=== PATIENT | male | born 1980 | race Caucasian/White ===

== ENCOUNTER → 2021-02-02 09:52 | Outpatient (CLI) | payer BC, SELFPAY ==
--- NOTE | 2021-02-02 09:55 | DI.RAD.S_ITS ---
PROCEDURE: XR HAND LT MIN 3V INDICATIONS: bilateral hand pain TECHNIQUE: 3 views of the hand(s) acquired. COMPARISON: None. FINDINGS: Bones: No fractures or dislocations. Carpal bones are normally aligned. No suspicious bony lesions. There is a corticated ossicle adjacent to the ulnar styloid, which may be ulnar styloid fracture versus accessory ossicle. Mild osteoarthritic changes are noted at the 1st carpometacarpal joint and 1st metacarpophalangeal joint. Soft tissues: No suspicious soft tissue calcifications. IMPRESSION: Mild osteoarthritic changes. Dictated by: Kerri Rivas M.D. on 02/02/2021 at 17:59 Approved by: Kerri Rivas M.D. on 02/03/2021 at 15:50
--- NOTE | 2021-02-02 09:55 | DI.RAD.S_ITS ---
PROCEDURE: XR CERVICAL SPINE 2V OR 3V INDICATIONS: chronic neck pain TECHNIQUE: 3 view(s) of the cervical spine were acquired. COMPARISON: None. FINDINGS: Bones: No fractures or dislocations to the T1 level. The lateral masses of C1 appear intact on the odontoid view. No suspicious bony lesions. Loss of lordosis which could be related to muscle spasm, rigidity or simply positional. Mild disc height loss at the C4-C5 and C5-C6 levels. Soft tissues: No prevertebral soft tissue swelling. IMPRESSION: Loss of lordosis and mild disc degeneration at the C4-C5 and C5-C6 levels. Dictated by: Dev Shaikh RRA Interpreted: Josi Dotson MD on 02/02/2021 at 10:44 Transcribed by: JACKIE on 02/02/2021 at 10:45 Approved by: Josi Dotson MD, PhD on 02/02/2021 at 14:24
--- NOTE | 2021-02-02 09:55 | DI.RAD.S_ITS ---
PROCEDURE: XR HAND RT MIN 3V INDICATIONS: bilateral hand pain TECHNIQUE: 3 views of the right hand(s) acquired. COMPARISON: None. FINDINGS: Bones: No fractures or dislocations. Carpal bones are normally aligned. No suspicious bony lesions. No osseous erosive changes. No periarticular osteopenia. No periosteal reaction. Soft tissues: No suspicious soft tissue calcifications. IMPRESSION: No osseous lesion. If symptoms and/or clinical suspicion for pathology persists, further assessment with repeat radiographs (7-10 days) or advanced imaging (e.g. CT, MRI or bone scan) should be considered. Dictated by: Josi Dotson MD, PhD on 02/02/2021 at 13:13 Approved by: Josi Dotson MD, PhD on 02/02/2021 at 13:14
== END ==
PROVIDERS: PCP Family Medicine; Referring Provider Family Medicine; Visit Provider Family Medicine
DX: M50.321 Other cervical disc degeneration at C4-C5 level (principal); M79.641 Pain in right hand; M79.642 Pain in left hand; M47.816 Spondylosis without myelopathy or radiculopathy, lumbar region; K58.9 Irritable bowel syndrome, unspecified; G89.29 Other chronic pain
CPT/HCPCS: 72040; 73130

== ENCOUNTER → 2021-02-15 07:18 | Outpatient (CLI) | payer BC, SELFPAY ==
[2021-02-15 09:29] LABS: Add Manual Diff / Slide Review NO; Basophils Absolute Auto 100 /uL (0-100); Basophils Percent Auto 0.7 % (0-2); Eosinophils Absolute Auto 200 /uL (0-450); Eosinophils Percent Auto 3.1 % (2-4); Hematocrit 47.3 % (41-53); Hemoglobin 16.4 g/dL (13.5-17.5); Lymphocytes Absolute Auto 2600 /uL (1100-4500); Mean Corpuscular HGB Conc 34.6 % (30-36); Mean Corpuscular Hemoglobin 28.8 PG (26-34); Mean Corpuscular Volume 83.4 fL (80-100); Monocytes Absolute Auto 500 /uL (0-900); Monocytes Percent Auto 7.1 % (3-14); Neutrophils Absolute Auto 3500 /uL (1500-7000); Neutrophils Percent Auto 51.1 % (50-75); Platelet Count 264 X10^3/uL (150-400); Red Blood Cell Count 5.68 X10^6/uL (4.5-5.9); Red Cell Distribution Width 13.2 % (11.6-14.8); White Blood Cell Count 6.9 X10^3/uL (4.5-11.0)
[2021-02-15 09:32] LABS: Alanine Aminotransferase 68 IU/L (<50); Albumin 4.8 g/dL (3.5-5.0); Albumin Globulin Ratio 1.3 (1.0-2.8); Alkaline Phosphatase 73 U/L (38-126); Aspartate Aminotransferase 39 IU/L (17-59); BUN Creatinine Ratio 17.6 (6-22); Bilirubin Total 0.7 mg/dL (0.2-1.3); Blood Urea Nitrogen 18 mg/dL (9-20); Calcium 10.3 mg/dL (8.4-10.2); Carbon Dioxide 32 mmol/L (22-32); Chloride 101 mmol/L (98-107); Cholesterol 275 mg/dL (140-199); Estimated Glomerular Filt Rate > 60.0 mL/min (>60); Globulin 3.8 g/dL (1.7-4.1); Glucose 107 mg/dL (70-100); HDL Cholesterol 54 mg/dL (40-60); HEMOLYSIS < 15 (0-50); LDL Cholesterol Calculated 154 mg/dL (<100); Sodium 139 mmol/L (137-145); Total Protein 8.6 g/dL (6.3-8.2); Triglycerides 336 mg/dL (35-150)
[2021-02-17 14:15] LABS: Deamidated Gliadin Ab IgA 4 units (0-19); Deamidated Gliadin Ab IgG 3 units (0-19); Immunoglobulin A,Qn 194 mg/dL (90-386); t-Transglutaminase IgA <2 U/mL (0-3)
== END ==
PROVIDERS: PCP Family Medicine; Referring Provider Family Medicine; Visit Provider Family Medicine
DX: K21.9 Gastro-esophageal reflux disease without esophagitis (principal); K58.9 Irritable bowel syndrome, unspecified; M47.816 Spondylosis without myelopathy or radiculopathy, lumbar region
CPT/HCPCS: 36415; 80053; 80061; 82784; 83516; 85025

== ENCOUNTER → 2021-03-30 06:34 | Outpatient (CLI) | payer BC, SELFPAY ==
--- NOTE | 2021-03-30 06:36 | DI.MRI.S_ITS ---
PROCEDURE: MR CERVICAL SPINE WO CON INDICATIONS: worsening neck pain and hand numbness and weakness TECHNIQUE: Noncontrast sagittal T1 spin echo and T2 fast spin echo, sagittal STIR, foraminal oblique sagittal T2 fast spin echo, and axial gradient echo or T2 fast spin echo through the cervical spine. COMPARISON: None. FINDINGS: Image quality: Excellent. Alignment and Curvature: There is normal bony alignment. There is mild reversal normal cervical spine curvature. Bone Marrow: Small hemangioma noted in the C6 vertebral body. Spinal Cord: Visualized spinal cord has normal size and signal. No cerebellar tonsillar herniation. Paraspinous Soft Tissues: No paravertebral masses. Prevertebral soft tissues are normal in thickness. C2-C3: Normal appearance. C3-C4: Slight loss of disc signal. No central stenosis. No neural foraminal narrowing. No neural compression. C4-C5: Slight loss of disc signal. Mild, diffuse disc bulge. Moderate narrowing of the central canal. No neural foraminal narrowing. C5-C6: Loss of disc signal. Mild, diffuse disc bulge. Right central disc extrusion. Extruded disc material abuts and compresses the right margin of the cervical spinal cord and the exiting right C6 nerve root. Severe narrowing of the central canal. Moderate right neural foraminal narrowing. C6-C7: Loss of disc signal. No central stenosis. No neural foraminal narrowing. No neural compression. C7-T1: Normal appearance. IMPRESSION: 1. Mild multilevel degenerative disc disease. 2. C5-C6 right central disc extrusion. Extruded disc material compresses the right margin of the cervical spinal cord and the right C6 nerve root. 3. Severe C5-C6 central canal narrowing secondary to disc disease. Moderate C4-C5 central canal narrowing secondary to disc disease. 4. Moderate right C5-C6 neural foraminal narrowing. Dictated by: Josi Dotson MD, PhD on 03/30/2021 at 10:21 Approved by: Josi Dotson MD, PhD on 03/30/2021 at 10:25
== END ==
PROVIDERS: PCP Family Medicine; Referring Provider Family Medicine; Visit Provider Family Medicine
DX: M50.321 Other cervical disc degeneration at C4-C5 level (principal); M50.222 Other cervical disc displacement at C5-C6 level; M48.02 Spinal stenosis, cervical region; M79.642 Pain in left hand; M79.641 Pain in right hand; R29.898 Other symptoms and signs involving the musculoskeletal system; G89.29 Other chronic pain
CPT/HCPCS: 72141

== ENCOUNTER → 2021-10-28 07:02 | Outpatient (CLI) | payer BC, SELFPAY ==
--- NOTE | 2021-10-28 | DI.MRI.S_ITS ---
PROCEDURE: MR ANKLE LT WO CON INDICATIONS: Short Achilles tendon (acquired), left ankle/pain TECHNIQUE: Noncontrast sagittal T1 spin echo and T2 fast spin echo with fat saturation, axial proton density fast spin echo and T2 fast spin echo with fat saturation, coronal T1 spin echo and T2 fast spin echo with fat saturation through the ankle/hindfoot. COMPARISON: None. FINDINGS: Image quality: Excellent. Bones and joints: No bone marrow contusions or fractures. No hindfoot coalitions. No osteochondral injuries of the talar dome. No pathologic joint effusions. Medial structures: The posterior tibialis, flexor digitorum longus, and flexor hallucis longus tendons are intact. The posterior tibial neurovascular bundle appears normal within the tarsal tunnel, without extrinsic mass effect. The deep layer (anterior and posterior tibiotalar ligaments) and superficial layer (tibionavicular, tibiospring, and tibiocalcaneal ligaments) of the deltoid ligament appear normal. The spring ligament components (superomedial calcaneonavicular, medioplantar oblique calcaneonavicular, and inferoplantar longitudinal ligaments) are intact. Lateral structures: The anterior talofibular, calcaneofibular, and posterior talofibular ligaments appear intact. More superiorly, the anterior and posterior tibiofibular ligaments appear intact, as is the intermalleolar ligament. The tibiofibular syndesmosis is normal in width at 2 mm or less. The peroneus longus and brevis tendons demonstrate normal location and morphology. Adjacent bony peroneal tubercle and retrotrochlear prominence are normal in size. The sinus tarsi demonstrates normal fatty signal, without edema, fibrosis, or cyst formation. Visualized sinus tarsi components (cervical ligament, interosseous talocalcaneal ligament, roots of the inferior extensor retinaculum) appear normal. The calcaneonavicular and calcaneocuboid components of the bifurcate ligament appear intact. The dorsal calcaneocuboid ligament appears intact. Anterior structures: The tibialis anterior, extensor hallucis longus, and extensor digitorum longus tendons appear intact. The dorsal talonavicular ligament appears intact. Posterior and plantar structures: Mildly thickening of distal Achilles tendon at its posterior calcaneal insertion is seen with mild overlying soft tissue edema. No Achilles tendon rupture. Medial and lateral bands of the plantar fascia are of normal thickness. No abductor digiti quinti muscle atrophy to suggest Gordon neuropathy. IMPRESSION: 1. Thickened distal Achilles tendon at its posterior calcaneal insertion is seen suggestive of Achilles tendinosis. No Achilles tendon rupture. Plantar fascia is intact. 2. Extensor, flexor, and peroneus tendons are intact. 3. Medial and lateral ankle ligaments are intact. 4. No marrow edema. No osteochondral injury of talar dome. No fracture or dislocation. Dictated by: Niko Culver M.D. on 10/28/2021 at 9:33 Approved by: Niko Culver M.D. on 10/28/2021 at 9:41
== END ==
PROVIDERS: PCP Family Medicine; Referring Provider Podiatrist; Visit Provider Podiatrist
DX: M67.02 Short Achilles tendon (acquired), left ankle (principal); M79.672 Pain in left foot
CPT/HCPCS: 73721

== ENCOUNTER → 2022-11-10 10:44 | Outpatient (CLI) | payer BC, SELFPAY ==
[2022-11-10 11:47] LABS: Add Manual Diff / Slide Review NO; Basophils Absolute Auto 100 /uL (0-100); Basophils Percent Auto 1.2 % (0-2); Eosinophils Absolute Auto 200 /uL (0-450); Eosinophils Percent Auto 4.4 % (2-4); Hematocrit 43.2 % (41-53); Hemoglobin 14.8 g/dL (13.5-17.5); Lymphocytes Absolute Auto 2300 /uL (1100-4500); Mean Corpuscular HGB Conc 34.3 % (30-36); Mean Corpuscular Hemoglobin 28.7 PG (26-34); Mean Corpuscular Volume 83.7 fL (80-100); Monocytes Absolute Auto 400 /uL (0-900); Monocytes Percent Auto 7.1 % (3-14); Neutrophils Absolute Auto 2400 /uL (1500-7000); Neutrophils Percent Auto 44.3 % (50-75); Platelet Count 243 X10^3/uL (150-400); Red Blood Cell Count 5.16 X10^6/uL (4.5-5.9); Red Cell Distribution Width 13.6 % (11.6-14.8); White Blood Cell Count 5.3 X10^3/uL (4.5-11.0)
[2022-11-10 12:31] LABS: Alanine Aminotransferase 68 IU/L (<50); Albumin 4.6 g/dL (3.5-5.0); Albumin Globulin Ratio 1.4 (1.0-2.8); Alkaline Phosphatase 70 U/L (38-126); Aspartate Aminotransferase 43 IU/L (17-59); BUN Creatinine Ratio 12.4 (6-22); Bilirubin Total 0.4 mg/dL (0.2-1.3); Blood Urea Nitrogen 11 mg/dL (9-20); Calcium 9.6 mg/dL (8.4-10.2); Carbon Dioxide 27 mmol/L (22-32); Chloride 101 mmol/L (98-107); Cholesterol 248 mg/dL (140-199); Estimated Glomerular Filt Rate > 60 mL/min (>60); Globulin 3.4 g/dL (1.7-4.1); Glucose 100 mg/dL (70-100); HDL Cholesterol 44 mg/dL (40-60); HEMOLYSIS < 15 (0-50); LDL Cholesterol Calculated 145 mg/dL (<100); Potassium 4.4 mmol/L (3.4-5.1); Sodium 138 mmol/L (137-145); Triglycerides 295 mg/dL (35-150)
[2022-11-10 13:01] LABS: TSH w/ Reflex to FT4 2.75 uIU/mL (0.47-4.68)
== END ==
PROVIDERS: PCP Family Medicine; Referring Provider Family Medicine; Visit Provider Family Medicine
DX: E78.5 Hyperlipidemia, unspecified (principal); E83.52 Hypercalcemia; K58.9 Irritable bowel syndrome, unspecified; M67.40 Ganglion, unspecified site
CPT/HCPCS: 36415; 80053; 80061; 84443; 85025

== ENCOUNTER → 2023-06-02 06:41 | Outpatient (CLI) | payer BC, SELFPAY ==
[2023-06-02 07:44] LABS: Add Manual Diff / Slide Review NO; Basophils Absolute Auto 0 /uL (0-100); Basophils Percent Auto 0.6 % (0-2); Eosinophils Absolute Auto 400 /uL (0-450); Eosinophils Percent Auto 5.5 % (2-4); Hematocrit 46.6 % (41-53); Lymphocytes Absolute Auto 2500 /uL (1100-4500); Lymphocytes Percent Auto 34.4 % (25-40); Mean Corpuscular HGB Conc 34.4 % (30-36); Mean Corpuscular Hemoglobin 28.9 PG (26-34); Mean Corpuscular Volume 83.9 fL (80-100); Monocytes Absolute Auto 500 /uL (0-900); Monocytes Percent Auto 7.1 % (3-14); Neutrophils Absolute Auto 3900 /uL (1500-7000); Neutrophils Percent Auto 52.4 % (50-75); Platelet Count 226 X10^3/uL (150-400); Red Blood Cell Count 5.55 X10^6/uL (4.5-5.9); White Blood Cell Count 7.4 X10^3/uL (4.5-11.0)
[2023-06-02 08:06] LABS: Alanine Aminotransferase 38 IU/L (<50); Albumin Globulin Ratio 1.5 (1.0-2.8); Alkaline Phosphatase 71 U/L (38-126); Aspartate Aminotransferase 28 IU/L (17-59); Bilirubin Total 0.6 mg/dL (0.2-1.3); Blood Urea Nitrogen 17 mg/dL (9-20); Calcium 10.2 mg/dL (8.4-10.2); Carbon Dioxide 31 mmol/L (22-32); Chloride 104 mmol/L (98-107); Cholesterol 158 mg/dL (140-199); Estimated Glomerular Filt Rate > 60 mL/min (>60); Globulin 3.3 g/dL (1.7-4.1); Glucose 107 mg/dL (70-100); HDL Cholesterol 59 mg/dL (40-60); HEMOLYSIS < 15 (0-50); LDL Cholesterol Calculated 58 mg/dL (<100); Potassium 4.5 mmol/L (3.4-5.1); Sodium 140 mmol/L (137-145); Total Protein 8.3 g/dL (6.3-8.2); Triglycerides 206 mg/dL (35-150)
[2023-06-04 09:10] LABS: Apolipoprotein B 104 mg/dL (<90)
[2023-06-07 05:11] LABS: Lipoprotein (a) 77.7 nmol/L (<75.0)
== END ==
LOC: LAB 06:41
PROVIDERS: PCP Family Medicine; Referring Provider Family Medicine; Visit Provider Family Medicine
DX: E78.5 Hyperlipidemia, unspecified (principal); M54.2 Cervicalgia; G89.29 Other chronic pain; F43.20 Adjustment disorder, unspecified; R74.8 Abnormal levels of other serum enzymes
CPT/HCPCS: 36415; 80053; 80061; 82172; 83695; 85025

== ENCOUNTER → 2024-01-30 14:41 | Outpatient (CLI) | payer BC, SELFPAY ==
--- NOTE | 2024-02-02 12:26 | DIET.OUTPTC ---
Dietary Outpatient Consultation Note Consultation Date: 01/30/2024 Assessment: 43 y M referred to dietitian for K58.9 - Irritable bowel syndrome without diarrhea. Pt and , Zoie are present at visit. Pt reports IBS ongoing for 3-4 years with recent worsening of symptoms. Symptoms include bloating, abdominal cramping and diarrhea. They occur at least 1x/wk and last anywhere between 2-5 days. During this time experiences watery diarrhea about 2x/day. Usually bloating occurs first for around 5 hours and then experiences abd pain. About 5 yrs ago, pt tried low FODMAPS elimination diet using [employer] aaron. Low fodmaps consistent of very limited variety of foods d/t pt's busy life at time and therefore was difficult to carry out. When he tried the reintroduction phase he noted gluten containing products causes symptom flare up. Pt has had lab work done indicating that he does not have celiac disease. No nausea/vomiting. Experiences periods of acid reflux for which he starts medication and it resolves. Can't tolerate fatty meats. PMH of hyperlipidemia. Taking atorvastatin. TG 206, chol 158, LDL 58, HDL 59 on 06/02/23. Diet recall: B-oatmeal or cheerios and skim milk L-lunch meat sandwiches, GF bars or snacks (made good, KIND, [employer]) D-Chicken, rice, dozier peppers (<1 whole one) Eats meals in 5-10 minutes. Puts hot sauce on dinners. Drinks 3-4 12 oz cups of regular brewed coffee daily (360-450 mg caffeine estimated daily) At most has 1-2 alcoholic beverages per week. Estimates around 32-48 oz of water per day Pt reports he is experiencing stress. Ht: 6 ft 1in Wt: 252 lb and 4 oz BMI: 33.3 UBW: 264-244 lb (2022-present) Nutrition Diagnosis: Food and nutrition related knowledge deficit r/t no previous nutrition educ on IBS aeb pt report Interventions: -Spent time discussing symptoms and previous experiences with food -Discussed first line modifiers vs low FODMAPS -Discussed IBS and what FODMAPs/low FODMAPs diet means -Label read ingredients and identified commonly eaten foods that are high FODMAPS (i.e. KIND bars with chicory root/honey) -Low FODMAPs snacks -Low FODMAPS fiber sources -Pt confirms he has the e-book guide from [employer] that lists the high and low FODMAPs foods that are verified by the [employer] aaron Plan to come back in February when holiday season is over to start a low FODMAPs for 2-6 weeks. At f/u will further cover low FODMAP foods and how to increase variety. For now will start with first line modifiers listed below. Goals: 1. Extend eating meals to 30+ minutes with adequate chewing of food to begin digestion process. 2. Reduce or eliminate hot sauce and opt for other seasoning to help manage acid reflux symptoms. 3. Additional 3-6 g soluble fiber (provided handout on low fodmaps fiber choices) EER: 35-38 g fiber/day Monitoring/Evaluations: f/u in 1 month Electronically Signed by: Uyen Granda 02/02/24 12:26 Clinical Dietitian [address] [address]
== END ==
PROVIDERS: PCP Family Medicine; Referring Provider Family Medicine
DX: K58.0 Irritable bowel syndrome with diarrhea (principal); Z71.3 Dietary counseling and surveillance; Z68.33 Body mass index [BMI] 33.0-33.9, adult; E78.5 Hyperlipidemia, unspecified; K21.9 Gastro-esophageal reflux disease without esophagitis
CPT/HCPCS: 97802

== ENCOUNTER → 2024-02-29 16:04 | Outpatient (CLI) | payer BC, SELFPAY ==
--- NOTE | 2024-02-29 17:43 | DIET.OUTPTC ---
Dietary Outpatient Consultation Note Consultation Date: 02/29/2024 Assessment: 43 y M referred to dietitian for K58.9 - Irritable bowel syndrome without diarrhea. Pt presents for f/u reporting being asymptomatic for 3 weeks now. Reports normal soft-formed stools 1x/day. Following appt in Jan, pt changed to eliminating most processed foods, slowing pace of eating and not eating in front of screen, eliminating hot sauce, reducing coffee to 3 12 oz cups and incorporating increased amounts of fiber into diet. Diet recall: (elimination diet, all low FODMAPs foods) B-cherrios and skim milk and banana L-poultry, 1 c of potatoes or rice, vegetables D- same as above, 1x/wk has 8 oz fish Pace of eating has help with hunger/fullness cues. Nutrition Diagnosis: (initial dx-Improved) Food and nutrition related knowledge deficit r/t no previous nutrition educ on IBS aeb pt report Interventions: -Discussed some additional variety of carbohydrates, fruits, vegs to have as options -Pt has done much research on IBS and FODMAPs and has strong understanding of these topics. 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 Encouraged continued variation of low fodmaps food for variety and adequate intake. Due to patient having many reliable/research based resources and strong understanding of topic/confidence in carrying out reintroduction phase, will f/u in 6 months over a closer f/u. Encouraged to reach out for additional questions/concerns/schedule sooner f/u as needed. EER: 35-38 g fiber/day Monitoring/Evaluations: f/u in 6 months Electronically Signed by: Uyen Granda 02/29/24 17:43 Clinical Dietitian [address] [address]
== END ==
PROVIDERS: PCP Family Medicine; Referring Provider Family Medicine
DX: K58.9 Irritable bowel syndrome, unspecified (principal); Z71.3 Dietary counseling and surveillance
CPT/HCPCS: 97803

== ENCOUNTER → 2024-03-20 06:25 | Outpatient (CLI) | payer BC, SELFPAY ==
[2024-03-20 07:46] LABS: Add Manual Diff / Slide Review NO; Basophils Absolute Auto 0 /uL (0-100); Basophils Percent Auto 0.4 % (0-2); Eosinophils Absolute Auto 300 /uL (0-450); Eosinophils Percent Auto 3.8 % (2-4); Hematocrit 45.5 % (41-53); Hemoglobin 15.7 g/dL (13.5-17.5); Lymphocytes Absolute Auto 2300 /uL (1100-4500); Lymphocytes Percent Auto 31.5 % (25-40); Mean Corpuscular HGB Conc 34.6 % (30-36); Mean Corpuscular Volume 83.8 fL (80-100); Monocytes Absolute Auto 500 /uL (0-900); Monocytes Percent Auto 7.1 % (3-14); Neutrophils Absolute Auto 4200 /uL (1500-7000); Neutrophils Percent Auto 57.2 % (50-75); Platelet Count 240 X10^3/uL (150-400); Red Blood Cell Count 5.42 X10^6/uL (4.5-5.9); Red Cell Distribution Width 13.4 % (11.6-14.8); White Blood Cell Count 7.3 X10^3/uL (4.5-11.0)
[2024-03-20 08:05] LABS: Alanine Aminotransferase 63 IU/L (<50); Albumin 4.8 g/dL (3.5-5.0); Albumin Globulin Ratio 1.5 (1.0-2.8); Alkaline Phosphatase 69 U/L (38-126); Aspartate Aminotransferase 35 IU/L (17-59); Bilirubin Total 0.7 mg/dL (0.2-1.3); Blood Urea Nitrogen 17 mg/dL (9-20); Calcium 9.8 mg/dL (8.4-10.2); Carbon Dioxide 28 mmol/L (22-32); Chloride 101 mmol/L (98-107); Cholesterol 161 mg/dL (140-199); Estimated Glomerular Filt Rate > 60 mL/min (>60); Globulin 3.2 g/dL (1.7-4.1); Glucose 107 mg/dL (70-100); HDL Cholesterol 55 mg/dL (40-60); HEMOLYSIS < 15 (0-50); LDL Cholesterol Calculated 55 mg/dL (<100); Potassium 4.4 mmol/L (3.4-5.1); Sodium 139 mmol/L (137-145); Triglycerides 254 mg/dL (35-150)
[2024-03-20 08:34] LABS: TSH w/ Reflex to FT4 3.08 uIU/mL (0.47-4.68)
[2024-03-21 04:36] LABS: Apolipoprotein B 63 mg/dL (<90)
[2024-03-23 02:07] LABS: Lipoprotein (a) 9.9 nmol/L (<75.0)
== END ==
PROVIDERS: PCP Family Medicine; Referring Provider Family Medicine; Visit Provider Family Medicine
DX: E78.5 Hyperlipidemia, unspecified (principal); E83.52 Hypercalcemia; R74.8 Abnormal levels of other serum enzymes
CPT/HCPCS: 36415; 80053; 80061; 82172; 83695; 84443; 85025

== ENCOUNTER → 2024-05-29 10:26 | Outpatient (CLI) | payer BC, SELFPAY ==
--- NOTE | 2024-05-29 10:27 | DI.RAD.S_ITS ---
PROCEDURE: XR CERVICAL SPINE 4V OR 5V INDICATIONS: NECK PAIN TECHNIQUE: 5 views of the cervical spine acquired. COMPARISON: [facility], CR, XR CERVICAL SPINE 2V OR 3V, 02/02/2021, 9:49. FINDINGS: Bones: There is straightening of normal cervical lordosis. No acute fracture or dislocation. Mild degenerative endplate changes are seen at C5-6 and C6-7 levels. Oblique images demonstrate mild bilateral bony foraminal stenosis at C5-6 and C6-7 levels are noted. Soft tissues: No prevertebral soft tissue swelling. IMPRESSION: Very mild degenerative disc disease in lower cervical spine with mild bilateral bony foraminal stenosis seen on oblique views. No fracture or dislocation. Dictated by: Niko Culver M.D. on 05/29/2024 at 11:31 Approved by: Niko Culver M.D. on 05/29/2024 at 11:32
== END ==
PROVIDERS: PCP Family Medicine; Referring Provider Physical Medicine & Rehabilitation; Visit Provider Physical Medicine & Rehabilitation
DX: M50.322 Other cervical disc degeneration at C5-C6 level (principal); M48.02 Spinal stenosis, cervical region; G89.29 Other chronic pain
CPT/HCPCS: 72050

== ENCOUNTER 2024-06-13 08:48 | Outpatient (CLI) | payer BC, SELFPAY ==
[2024-06-13] VITALS (8 sets, daily range): BP systolic 132–151; BP diastolic 86–99; PULSE 72–79; RESP 11–17; TEMP 36.1; O2SAT 97–100
[2024-06-13] MEDS: MIDAZOLAM 2 MG/2 ML VIAL IV (10:11)
[2024-06-13] MEDS: iopamidoL 15 ML VIAL 3 ML INJ (10:16)
[2024-06-13] MEDS: DEXAMETHASONE 10 MG/ML VIAL 30 MG INJ (10:16)
[2024-06-13] MEDS: BUPIVACAINE 0.25% (PF) VIAL 2 ML INJ (10:17)
--- NOTE | 2024-06-13 10:30 | P.PCN_ITS ---
Date/Time/Diagnoses Date of procedure: 06/13/24 Time of procedure: 10:31 Pre-procedure diagnosis: 1. CERVICAL STENOSIS, 2. CERVICAL HNP WITH UPPER EXTREMITY RADICULAR FEATURES Post-procedure diagnosis: same Procedure Notes Procedure: 1. FLUORSCOPICALLY GUIDED CONTRAST CONTROLLED INTERLAMINAR EPIDURAL STEROID INJECTION - C6/7 TL KATERINA Indications: Tristin is referred by Dr. Headley for treatment of Cervical HNP with Upper Extremity Paresthesias. Physician: Ernesto Rod Total Fluoroscopy time (seconds): 31 Total sedation minutes: 15 Complications: none Procedure in detail & Post-procedure care: FINDINGS Cervical Stenosis due to disc deterioration and nerve root irritation and nerve root irritation DESCRIPTION OF PROCEDURE Fluoroscopically guided, contrast-controlled C6/7 translaminar epidural steroid injection with conscious sedation. Following review of allergy and review of potential side effects and complications, including, but not necessarily limited to, infection, allergic reaction, local tissue breakdown, temporary as well as permanent nerve injury, stroke, paralysis, and possible , the patient indicated that patient understood and agreed to proceed. An informed consent document was signed by the patient, witnessed by a nurse, and placed in the patient's chart. Additionally, other treatment options including modalities, medications, and physical therapy were reviewed with the patient. After review of previous anaesthesic history and IV conscious sedation the patient was deemed safe to proceed with today?s procedure with IV conscious s edation as ASA class II designation. Safety time-out was performed to confirm patient ID, procedure to be performed and site of procedure. IV sedation was accomplished with a combination of 2mg of Versed administered by the RN after DO order, titrated to patient comfort during the course of the procedure while the patient remained responsive to all verbal commands. In the prone position, following sterile prep and drape of the cervical region, the C6/7 translaminar space was identified fluoroscopically. The skin was anesthetized via a 25-gauge 1.5-inch needle with 1% lidocaine solution. At this point, a 25-gauge, 2.5-inch short bevel spinal needle was atraumatically introduced and advanced under fluoroscopic guidance into epidural space at the C6/7 translaminar space. Depth was confirmed on lateral view. Radiological data, including multiple fluoroscopic views of the cervical spine, reveal a spinal needle at the C6/7 translaminar space. Lateral views then show placement of the needle in the epidural space. Subsequent views show contrast material flowing superiorly and inferiorly in the epidural space. DSA fluoroscopy with live contrast injection, once again, confirmed no vascular or intrathecal uptake. At this point, using loss of resistance technique with saline and air, the epidural space was entered. Following negative aspiration, injection of approximately 1.5 cc of Isovue-200 with live fluoroscopy in the AP view confirmed epidural flow in the epidural space without vascular or intrathecal uptake observed. Subsequently, a test dose of 1 cc of 1% lidocaine solution was injected and patient was observed for two minutes without signs or symptoms of complications, including abdominal pain, shortness of breath, bilateral upper or lower extremity weakness, nausea and vomiting, prior to steroid injection. At this point, 3cc or 30mg of dexamethasone was then injected without incident. The patient tolerated the procedure well without signs or symptoms of complications prior to being transferred to the recovery area for further monitoring, The patient was then transferred to the recovery area where they were observed for an appropriate period of time after the injection. The patient reported a VAS score of 6 prior to the procedure and a post-procedure VAS of 0. POST OP INSTRUCTIONS The patient was provided a Pain Log to continue to record their response to the target-specific procedure prior to follow-up visit with the referring provider. Additionally, specific post-injection care instructions and a contact number to our office were provided if concerns arise regarding possible complications associated with the procedure are suspected.
== END 2024-06-13 10:44 | disposition home or self-care (01) ==
PROVIDERS: PCP Family Medicine; Referring Provider Physical Medicine & Rehabilitation; Visit Provider Physical Medicine & Rehabilitation
DX: M48.02 Spinal stenosis, cervical region (principal); M50.123 Cervical disc disorder at C6-C7 level with radiculopathy
CPT/HCPCS: 62321; 99152; J1100; J2250; J3490

== ENCOUNTER → 2024-08-29 16:15 | Outpatient (CLI) | payer BC, SELFPAY ==
[2024-08-29 17:40] LABS: Influenza A - CEPHEID Flu A NEGATIVE (NEGATIVE); Influenza B - CEPHEID Flu B NEGATIVE (NEGATIVE)
[2024-08-29 17:42] LABS: COVID-19 CEPHEID 4-PLEX PCR Negative (Negative)
== END ==
PROVIDERS: PCP Family Medicine; Visit Provider Physician Assistant
DX: J02.9 Acute pharyngitis, unspecified (principal); R05.1 Acute cough
CPT/HCPCS: 87070; 87637

== ENCOUNTER 2024-09-12 12:19 | Day surgery (SDC) | payer BC, SELFPAY ==
[2024-09-12 12:45] VITALS: BP 144/86; PULSE 95; RESP 16; TEMP 36.5; O2SAT 97
[2024-09-12] MEDS: LACTATED RINGERS 1,000 ML 100 ML IV (12:56)
--- NOTE | 2024-09-12 13:56 | PM.HP.IH.1 ---
History of Present Illness History of Present Illness Date Patient Seen: 09/12/24 Time Patient Seen: 13:56 Chief complaint: [facility] [place] Narrative: Alvaro is a 43-year-old man who presents for a screening colonoscopy, his first. No first-degree family members with colon cancer. [facility] Medical History (Updated 09/12/24 @ 13:57 by Dontrell Rodriguez MD) HNP (herniated nucleus pulposus), cervical Cervical radiculopathy at C6 Chronic neck pain Bilateral hand pain Lumbar spondylosis IBS (irritable bowel syndrome) Surgical History Anesthesia Pain management History of excision of pilonidal cyst (~1999) Family History Father Asthma Hyperlipidemia Sister Asthma Noé's disease Grandmother Cancer Hypertension Grandfather Cancer Diabetes mellitus Grandmother Arthritis Social History Smoking Status: Never smoker Meds Home Medications and Allergies Home Medications ?Medication ?Instructions ?Recorded ?Confirmed ?Type meloxicam 15 mg tablet 15 mg PO DAILY PRN for pain #60 05/22/24 09/12/24 Rx tabs atorvastatin 10 mg tablet 10 mg PO BEDTIME #90 tabs 06/04/24 09/12/24 Rx tramadol 50 mg tablet 50 mg PO TID PRN pain #45 tabs 06/04/24 09/12/24 Rx scopolamine base 1 mg over 3 days 1 patch transdermal Q3D PRN motion 07/18/24 09/12/24 Rx transdermal patch sickness #10 ea sodium,potassium,mag sulfates 17.5 See Rx Instructions PO .COMPLEX 08/02/24 09/12/24 Rx gram-3.13 gram-1.6 gram oral soln #354 mL (Suprep Bowel Prep Kit) cetirizine 10 mg tablet (24Hour 10 mg PO DAILY PRN allergy symptoms 09/12/24 09/12/24 History Allergy) Allergies Allergy/AdvReac Type Severity Reaction Status Date / Time No Known Drug Allergies Allergy Verified 09/12/24 12:34 Exam Vital Signs (past 8 hours): - 09/12/24 12:45 Temperature 97.7 F Pulse Rate 95 H Respiratory Rate 16 Blood Pressure 144/86 H Pulse Oximetry 97 Oxygen Delivery Method Room Air Oxygen Delivery Method Room Air Const General: healthy appearing Assessment & Plan Assessment and plan (1) Colon cancer screening: Status: Acute Plan Colonoscopy Time-Based Coding :: [TOTAL MINUTES] spent with patient and on the chart (including review of chart, obtaining history, exam, reviewing outside data, placing orders, documenting exam and treatment plan, and counseling patient) on [DATE]. PROFEE Er Medical Technician Document charge(s): No
[2024-09-12 14:27] VITALS: BP 124/76; PULSE 92; RESP 14; TEMP 36.2; O2SAT 98
--- NOTE | 2024-09-12 14:34 | PM.OP.COLON ---
Operative Date/Time/Diagnoses Date of procedure: 09/12/24 Time of procedure: 14:34 Pre-op diagnosis: Colon cancer screening Post-op diagnosis: same Procedure & Clinicians Study performed: Colonoscopy Same procedure(s) as scheduled: Yes Surgeon: Dontrell Rodriguez Anesthesia Type: MAC +/- Procedure Notes Procedure in detail: Surgeon: Dontrell Rodriguez MD Anesthesia: Almaz Reese CRNA Procedure: The patient was brought to the endoscopy suite, placed in left lateral decubitus position. The patient was connected to monitoring devices. A time-out was performed. Sedation was administered. Once the patient was adequately sedated, a digital rectal exam was performed and was normal. The scope was then inserted and advanced to the cecum where the appendiceal orifice was identified and photographed. The scope was then slowly withdrawn over greater than 6 minutes. The mucosa was thoroughly inspected. No abnormalities were found. The scope was retroflexed in the rectum. Internal hemorrhoids were noted. The scope was straightened and removed. The patient was awakened and brought to recovery. Scope withdrawal time: 10 minutes Sedation time: 13 minutes EBL: 0 Findings: Normal colon Post-procedure Recommendations: Colonoscopy in 10 years Disposition: PACU
[2024-09-12 14:35] VITALS: BP 120/74; PULSE 92; RESP 19; O2SAT 97
[2024-09-12 14:36] VITALS: BP 129/78; PULSE 90; RESP 20; O2SAT 98
== END 2024-09-12 14:52 | disposition home or self-care (01) ==
PROVIDERS: PCP Family Medicine; Referring Provider Family Medicine; Visit Provider Surgery
PROC: 0DJD8ZZ Inspection of Lower Intestinal Tract, Via Natural or Artificial Opening Endoscopic (ICD-10-PCS; CPT 45378; principal; 2024-09-12 14:15)
DX: Z12.11 Encounter for screening for malignant neoplasm of colon (principal); K64.8 Other hemorrhoids
CPT/HCPCS: 45378; J2704

== ENCOUNTER 2024-11-14 09:06 | Outpatient (CLI) | payer BC, SELFPAY ==
[2024-11-14 10:10] VITALS: BP 136/96; PULSE 71; RESP 18; TEMP 36.7; O2SAT 97
[2024-11-14 10:31] VITALS: BP 156/95; PULSE 74; RESP 16; O2SAT 99
[2024-11-14] MEDS: MIDAZOLAM 2 MG/2 ML VIAL IV (10:35)
[2024-11-14 10:40] VITALS: BP 137/89; PULSE 72; RESP 16; O2SAT 99
[2024-11-14 10:45] VITALS: BP 118/88; PULSE 71; RESP 16; O2SAT 99
--- NOTE | 2024-11-14 10:51 | P.PCN_ITS ---
Date/Time/Diagnoses Date of procedure: 11/14/24 Time of procedure: 10:51 Pre-procedure diagnosis: 1. CERVICAL STENOSIS, 2. CERVICAL HNP WITH UPPER EXTREMITY RADICULAR FEATURES Post-procedure diagnosis: same Procedure Notes Procedure: 1. FLUORSCOPICALLY GUIDED CONTRAST CONTROLLED INTERLAMINAR EPIDURAL STEROID INJECTION - C6/7 TL KATERINA Indications: Tristin is referred by Dr. Headley for treatment of Cervical HNP with Upper Extremity Paresthesias. Physician: Ernesto Rod Total Fluoroscopy time (seconds): 30 Total sedation minutes: 12 Complications: none Procedure in detail & Post-procedure care: FINDINGS Cervical Stenosis due to disc deterioration and nerve root irritation and nerve root irritation DESCRIPTION OF PROCEDURE Fluoroscopically guided, contrast-controlled C6/7 translaminar epidural steroid injection with conscious sedation. Following review of allergy and review of potential side effects and complications, including, but not necessarily limited to, infection, allergic reaction, local tissue breakdown, temporary as well as permanent nerve injury, stroke, paralysis, and possible , the patient indicated that patient understood and agreed to proceed. An informed consent document was signed by the patient, witnessed by a nurse, and placed in the patient's chart. Additionally, other treatment options including modalities, medications, and physical therapy were reviewed with the patient. After review of previous anaesthesic history and IV conscious sedation the patient was deemed safe to proceed with today?s procedure with IV conscious s edation as ASA class II designation. Safety time-out was performed to confirm patient ID, procedure to be performed and site of procedure. IV sedation was accomplished with a combination of 2mg of Versed administered by the RN after DO order, titrated to patient comfort during the course of the procedure while the patient remained responsive to all verbal commands. In the prone position, following sterile prep and drape of the cervical region, the C6/7 translaminar space was identified fluoroscopically. The skin was anesthetized via a 25-gauge 1.5-inch needle with 1% lidocaine solution. At this point, a 25-gauge, 2.5-inch short bevel spinal needle was atraumatically introduced and advanced under fluoroscopic guidance into epidural space at the C6/7 translaminar space. Depth was confirmed on lateral view. Radiological data, including multiple fluoroscopic views of the cervical spine, reveal a spinal needle at the C6/7 translaminar space. Lateral views then show placement of the needle in the epidural space. Subsequent views show contrast material flowing superiorly and inferiorly in the epidural space. DSA fluoroscopy with live contrast injection, once again, confirmed no vascular or intrathecal uptake. At this point, using loss of resistance technique with saline and air, the epidural space was entered. Following negative aspiration, injection of approximately 1.5 cc of Isovue-[id number] with live fluoroscopy in the AP view confirmed epidural flow in the epidural space without vascular or intrathecal uptake observed. Subsequently, a test dose of 1 cc of 1% lidocaine solution was injected and patient was observed for two minutes without signs or symptoms of complications, including abdominal pain, shortness of breath, bilateral upper or lower extremity weakness, nausea and vomiting, prior to steroid injection. At this point, 2cc or 20mg of dexamethasone was then injected without incident. The patient tolerated the procedure well without signs or symptoms of complications prior to being transferred to the recovery area for further monitoring, The patient was then transferred to the recovery area where they were observed for an appropriate period of time after the injection. The patient reported a VAS score of 8 prior to the procedure and a post-procedure VAS of 1. POST OP INSTRUCTIONS The patient was provided a Pain Log to continue to record their response to the target-specific procedure prior to follow-up visit with the referring provider. Additionally, specific post-injection care instructions and a contact number to our office were provided if concerns arise regarding possible complications associated with the procedure are suspected.
[2024-11-14 11:05] VITALS: BP 143/90; PULSE 70; RESP 11; O2SAT 96
== END 2024-11-14 11:13 | disposition home or self-care (01) ==
LOC: RAD 09:06
PROVIDERS: PCP Family Medicine; Referring Provider Physical Medicine & Rehabilitation; Visit Provider Physical Medicine & Rehabilitation
DX: M48.02 Spinal stenosis, cervical region (principal); M50.123 Cervical disc disorder at C6-C7 level with radiculopathy
CPT/HCPCS: 62321; 99152; J1100; J2250